=== PATIENT | female | born 1990 | race African-American/Black ===

== ENCOUNTER 2022-01-05 07:45 | Inpatient (IN) | payer MEDICAID ==
[~2022-01-05] VITALS: Ht 160 cm; Wt 87.5 kg
[2022-01-05] MEDS ORDERED: MAGN400T26 PO (08:36)
[2022-01-05] MEDS ORDERED: DOCU-150 PO (08:36)
[2022-01-05] MEDS ORDERED: PREN1TAB23 PO (08:36)
[2022-01-05] MEDS ORDERED: FERR-63 PO (08:36)
[2022-01-05] MEDS ORDERED: METHYLERGONOVINE MALEATE 0.2 MG/ML IM PRN (10:30)
[2022-01-05] MEDS ORDERED: DEXT 5%/LR + PITOCIN 20UNITS/L 1,000 ML IV SCH (10:30)
[2022-01-05] MEDS ORDERED: NALOXONE HCL 0.4 MG/ML 1ML VIAL IM PRN (10:30)
[2022-01-05] MEDS ORDERED: MISOPROSTOL 100MCG TABLET VG SCH (10:30)
[2022-01-05] MEDS ORDERED: LIDOCAINE HCL 1% 20ML VIAL (Pyxis) INJ INFIL SCH (10:30)
[2022-01-05] MEDS ORDERED: BUTORPHANOL TARTRATE 2 MG/ML VIAL IV PRN (10:30)
[2022-01-05] MEDS ORDERED: ROPIVACAINE HCL/PF EPIDURAL 200 ML EPI SCH (10:45)
[2022-01-05] MEDS ORDERED: PENICILLIN G POTASSIUM 5 MMU in DEXT 5% WATER 100 ML IV ONE (11:00)
[2022-01-05] MEDS ORDERED: LIDOCAINE HCL 2%/EPINEPHRINE 1:100,000 20 ML VIAL INFIL ONE (11:00)
[2022-01-05] MEDS: LACTATED RINGERS 1,000 ML IV SCH ×3 (12:08→18:10)
[2022-01-05 12:27] LABS: BASOPHILS % 0.2 % (0.0-2.0); EOSINOPHILS % 0.1 % (0.0-5.0); HEMATOCRIT. 38.3 % (36.0-48.0); HEMOGLOBIN. 13.2 g/dL (12.0-16.0); LYMPHOCYTES % 9.3 % (20.0-50.0); MEAN CORPUSCULAR HEMOGLOBIN 29.5 pg (28.0-32.0); MEAN CORPUSCULAR VOLUME 85.9 fL (81.0-99.0); MEAN PLATELET VOLUME 10.2 fl (7.4-10.4); MONOCYTES % 5.2 % (2.0-8.0); NEUTROPHILS % 85.2 % (40.0-76.0); PLATELET 162 x1000/uL (130-400); RED BLOOD CELL COUNT 4.46 mill/uL (4.2-5.4)
[2022-01-05 12:35] LABS: CLARITY URINE CLOUDY (CLEAR); COLOR URINE YELLOW (YELLOW); KETONES URINE 1+ (NEGATIVE); LEUKOCYTE ESTERASE URINE TRACE (NEGATIVE); NITRITE URINE NEGATIVE (NEGATIVE); OCCULT BLOOD URINE NEGATIVE (NEGATIVE); PROTEIN URINE TRACE (NEGATIVE); SPECIFIC GRAVITY URINE 1.023 (1.005-1.030); UROBILINOGEN URINE 0.2 E.U./dL (0.2-1.0)
[2022-01-05 12:37] LABS: INR 0.9; PARTIAL THROMBOPLASTIN TIME 26.7 sec (23.4-31.0); PROTHROMBIN TIME 9.9 sec (9.6-11.0)
[2022-01-05 12:52] LABS: *AMPHETAMINES SCREEN URINE NEGATIVE (NEGATIVE); *BARBITURATES SCREEN URINE NEGATIVE (NEGATIVE); *BENZODIAZEPINES SCREEN URINE NEGATIVE (NEGATIVE); *COCAINE SCREEN URINE NEGATIVE (NEGATIVE); CANNABINOID URINE SCREEN NEGATIVE (NEGATIVE); METHADONE URINE SCREEN NEGATIVE (NEGATIVE); OPIATES URINE SCREEN NEGATIVE (NEGATIVE); PHENCYCLIDINE URINE SCREEN NEGATIVE (NEGATIVE)
[2022-01-05 14:32] LABS: HEPATITIS B SURFACE ANTIGEN NEGATIVE
[2022-01-05] MEDS: PENICILLIN G POTASSIUM 2.5 MMU in DEXTROSE 5% WATER 50 ML IV SCH ×2 (15:50→21:53)
[2022-01-05] MEDS ORDERED: ROPIVACAINE HCL/PF EPIDURAL 200 ML EPI ONE (17:38)
[2022-01-05] MEDS ORDERED: FENTANYL CITRATE/PF 50MCG/ML 2ML VIAL ONE (17:39)
[2022-01-06] MEDS ORDERED: HEMORRHOIDAL SUPP PR PRN (00:15)
[2022-01-06] MEDS ORDERED: GLYCERIN/WITCH HAZEL LEAF MEDICATED PAD TOP PRN (00:15)
[2022-01-06] MEDS ORDERED: DIPHENHYDRAMINE 25MG CAPSULE PO PRN (00:15)
[2022-01-06] MEDS ORDERED: DEXT 5%/LR + PITOCIN 20UNITS/L 1,000 ML IV SCH (00:15)
[2022-01-06] MEDS ORDERED: OXYCODONE HCL/ACETAMINOPHEN 5/325MG TABLET PO PRN (00:15)
[2022-01-06] MEDS ORDERED: RHO(D) IMMUNE GLOBULIN 300 MCG/SYR IM PRN (00:15)
[2022-01-06] MEDS ORDERED: LANOLIN OINT 7GM TUBE TOP PRN (00:15)
[2022-01-06] MEDS ORDERED: BISACODYL 10MG SUPP PR PRN (00:15)
[2022-01-06] MEDS ORDERED: IBUPROFEN 400MG TABLET PO PRN (00:15)
[2022-01-06] MEDS ORDERED: BENZOCAINE/LANOLIN/ALOE VERA SPRAY TOP PRN (00:15)
[2022-01-06 01:15] VITALS: BP 131/71
[2022-01-06] MEDS ORDERED: DOCUSATE SODIUM 100MG CAPSULE PO PRN (01:15)
[2022-01-06] MEDS: IBUPROFEN 800MG TABLET PO PRN ×3 (01:34→16:19)
[2022-01-06 04:00] VITALS: BP 98/57
[2022-01-06 07:30] VITALS: BP 91/51
[2022-01-06] MEDS: SIMETHICONE 80MG TABLET CHEW PO SCH ×5 (08:30→22:00)
[2022-01-06] MEDS: FERROUS SULFATE 325MG TABLET PO SCH ×2 (09:15→12:44)
[2022-01-06] MEDS: MAGNESIUM/ALUMINUM HYDROXIDE/SIMETHICONE 30ML UDC PO SCH ×4 (09:15→22:15)
[2022-01-06] MEDS: PRENATAL VIT/FE FUMARATE/FA TABLET PO SCH (09:16)
[2022-01-06] MEDS: MAGNESIUM OXIDE 400MG TABLET PO SCH (12:44)
[2022-01-06 16:00] VITALS: BP 111/64
[2022-01-06] MEDS ORDERED: MEASLES,MUMPS&RUBELLA VACCINE 1 VIAL SUBCUT ONE (18:30)
[2022-01-06] MEDS ORDERED: TETANUS, DIPHTHERIA, PERTUSSIS VAC/PF 0.5ML (>10YR OLD) IM ONE (18:30)
[2022-01-06] MEDS ORDERED: DOCUSATE SODIUM 100MG CAPSULE PO SCH (21:00)
[2022-01-06 21:59] VITALS: BP 95/53
[2022-01-07] MEDS: IBUPROFEN 800MG TABLET PO PRN ×2 (01:13→08:28)
[2022-01-07 05:49] VITALS: BP 93/64
[2022-01-07] MEDS ORDERED: IBUP-2030 PO (07:15)
[2022-01-07] MEDS ORDERED: FERROUS SULFATE 325MG TABLET PO SCH (07:30)
[2022-01-07 07:45] VITALS: BP 102/53
[2022-01-07] MEDS: MAGNESIUM OXIDE 400MG TABLET PO SCH (08:27)
[2022-01-07] MEDS: MAGNESIUM/ALUMINUM HYDROXIDE/SIMETHICONE 30ML UDC PO SCH (08:27)
[2022-01-07] MEDS: PRENATAL VIT/FE FUMARATE/FA TABLET PO SCH (08:27)
[2022-01-07 09:45] LABS: BASOPHILS % 0.3 % (0.0-2.0); EOSINOPHILS % 0.6 % (0.0-5.0); HEMATOCRIT. 36.1 % (36.0-48.0); HEMOGLOBIN. 12.2 g/dL (12.0-16.0); LYMPHOCYTES % 15.2 % (20.0-50.0); MEAN CORPUSCULAR HEMOGLOBIN 29.7 pg (28.0-32.0); MEAN CORPUSCULAR VOLUME 88.2 fL (81.0-99.0); MEAN PLATELET VOLUME 9.8 fl (7.4-10.4); MONOCYTES % 8.1 % (2.0-8.0); NEUTROPHILS % 75.8 % (40.0-76.0); PLATELET 149 x1000/uL (130-400); RED BLOOD CELL COUNT 4.09 mill/uL (4.2-5.4); RED CELL DISTRIBUTION WIDTH 14.5 % (11.6-14.6)
== END 2022-01-07 12:45 | disposition home or self-care (01) | DRG 560 ==
LOC: 8 EST LDRP 07:45 → OBSVTOIN 10:32 → 8 EST A/PP 01-06 01:45 → 8EST 01-06 16:40
PROVIDERS: ADMIT Obstetrics & Gynecology; ATTEND Obstetrics & Gynecology
PROC: 10D07Z6 Extraction of Products of Conception, Vacuum, Via Natural or Artificial Opening (ICD-10-PCS; principal; 2022-01-06)
PROC: 0W8NXZZ Division of Female Perineum, External Approach (ICD-10-PCS; 2022-01-06)
PROC: 3E0R3BZ Introduction of Anesthetic Agent into Spinal Canal, Percutaneous Approach (ICD-10-PCS; 2022-01-06)
PROC: 00HU33Z Insertion of Infusion Device into Spinal Canal, Percutaneous Approach (ICD-10-PCS; 2022-01-06)
DX: O77.0 Labor and delivery complicated by meconium in amniotic fluid (principal); Z37.0 Single live birth; Z20.822 Contact with and (suspected) exposure to COVID-19; Z3A.39 39 weeks gestation of pregnancy
CPT/HCPCS: 36415; 76805; 76818; 80305; 81003; 85025; 86592; 86703; 86762; 86850; 86900; 87340; 87426; 90707; 90715; 99281; G0378; J0595; J2210; J2540; J2590; J2795; J3010; J3490; J7060; J7120